=== PATIENT | male | born 1990 | race African-American/Black ===

== ENCOUNTER 2016-08-17 08:25 | Emergency (ER) | payer OTHER ==
[~2016-08-17] VITALS: Ht 188 cm; Wt 81.6 kg
[2016-08-17] MEDS ORDERED: [UNRECOGNIZED DRUG - OTHER] PO (08:59)
[2016-08-17] MEDS ORDERED: STRATTERA80 MG PO (09:00)
[2016-08-17] MEDS ORDERED: TRAZODONE HCL50 MG PO (09:01)
[2016-08-17] MEDS ORDERED: HALOPERIDOL5 MG PO (09:01)
[2016-08-17] MEDS ORDERED: VALACYCLOVIR1000 MG PO (09:02)
[2016-08-17] MEDS ORDERED: HYDROXYZINE HCL25 MG PO (09:03)
[2016-08-17] MEDS ORDERED: BENZTROPINE PO (09:04)
[2016-08-17] MEDS ORDERED: TRAMADOL HCL50 MG PO (09:31)
[2016-08-17] MEDS ORDERED: NAPROSYN500 MG PO (09:31)
[2016-08-17] MEDS ORDERED: PEN-VEE K,VEET500 MG PO (09:31)
[2016-08-17 09:44] VITALS: BP 129/80
== END 2016-08-17 09:45 | disposition home or self-care (01) ==
LOC: EME 08:25
DX: K08.89 Other specified disorders of teeth and supporting structures (principal); K03.81 Cracked tooth; Z21 Asymptomatic human immunodeficiency virus [HIV] infection status; F32.9 Major depressive disorder, single episode, unspecified; F41.9 Anxiety disorder, unspecified; F17.200 Nicotine dependence, unspecified, uncomplicated; Z98.811 Dental restoration status
CPT/HCPCS: 99281; 99284

== ENCOUNTER 2016-09-25 13:58 | Emergency (ER) | payer OTHER ==
[~2016-09-25] VITALS: Ht 188 cm; Wt 78.3 kg
[~2016-09-25 13:58] MED LIST: BENZTROPINE PO; HALOPERIDOL5 MG PO; HYDROXYZINE HCL25 MG PO; NAPROSYN500 MG PO; PEN-VEE K,VEET500 MG PO; STRATTERA80 MG PO; TRAMADOL HCL50 MG PO; TRAZODONE HCL50 MG PO; VALACYCLOVIR1000 MG PO; [UNRECOGNIZED DRUG - OTHER] PO
[2016-09-25] MEDS ORDERED: ULTRAM50 MG PO (14:23)
[2016-09-25] MEDS ORDERED: FLAGYL500 MG PO (14:23)
[2016-09-25 14:35] VITALS: BP 120/84
== END 2016-09-25 14:36 | disposition home or self-care (01) ==
LOC: EME 13:58
DX: K02.9 Dental caries, unspecified (principal); K08.89 Other specified disorders of teeth and supporting structures; Z21 Asymptomatic human immunodeficiency virus [HIV] infection status
CPT/HCPCS: 99281; 99283